=== PATIENT | female | born 1960 | race Caucasian/White ===

== ENCOUNTER 2017-01-05 11:01 | Emergency (ER) | payer MEDICAID, MEDICARE ==
--- NOTE | 2017-01-05 11:29 | ER Document Report ---
ED Fall - General Mode of Arrival: Medic Information source: Patient, Friend TRAVEL OUTSIDE OF THE [place] IN LAST 30 DAYS: No - HPI Occurred: Just prior to arrival - Refer to HPI notes Context: Slipped, Fell from standing Location of injury/pain: Back, Buttocks, Head, Hip, Neck Prehospital interventions: C-collar <RAMSEY MORILLO - Last Filed: 01/05/17 11:54> <RADHA GUY - Last Filed: 01/05/17 13:05> - General Chief Complaint: Head Injury Stated Complaint: FALL/HEAD PAIN Time Seen by Provider: 01/05/17 11:22 Notes: Patient is a 56-year-old female presenting to the emergency department after a fall. [place] her feet slid out from underneath of her and she fell on her buttocks. Patient states after she hit her buttocks on the floor she then "slammed" her head onto the concrete tile and it "bounced" off the ground after the initial hit. Patient states she saw black for a few seconds and she bit her tongue. Patient complains of pain to her left hip and left buttocks, into her lower back, and to the back of her head. Patient states she feels some numbness down her legs. Patient has a history of seizures, GERD, and a previous slow bleed from her left temporal lobe. (RAMSEY MORILLO) - Related data Allergies/Adverse Reactions: amoxicillin Allergy (Verified 01/05/17 11:27) Sulfa (Sulfonamide Antibiotics) Allergy (Verified 01/05/17 11:27) Past Medical History - General Information source: Patient, Friend - Social History Smoking Status: Unknown if Ever Smoked Family History: None Patient has suicidal ideation: No Patient has homicidal ideation: No - Past Medical History Cardiac Medical History: Reports: Hx Hypertension Neurological Medical History: Reports: Hx Seizures, Other - slow bleed to the left temporal lobe from traumatic event, peripheral neuropathy GI Medical History: Reports: Hx Gastroesophageal Reflux Disease Past Surgical History: Reports: Other - vagal nerve stimulator <RAMSEY MORILLO - Last Filed: 01/05/17 11:54> Review of Systems - Review of Systems Constitutional: No symptoms reported EENT: See HPI Cardiovascular: No symptoms reported Respiratory: No symptoms reported Gastrointestinal: No symptoms reported Genitourinary: No symptoms reported Female Genitourinary: No symptoms reported Musculoskeletal: See HPI Skin: No symptoms reported Hematologic/Lymphatic: No symptoms reported Neurological/Psychological: No symptoms reported -: Yes All other systems reviewed and negative <RAMSEY MORILLO - Last Filed: 01/05/17 11:54> Physical Exam - Vital signs Interpretation: Normal - General General appearance: Alert, Other - patient in suspine with C-collar in place In distress: Mild - HEENT Head: Normocephalic Eyes: Normal Pupils: PERRL Mucous membranes: Moist Pharynx: Other - bite zhen to tongue, no active bleeding Neck: Other - C-collar in place - Respiratory Respiratory status: No respiratory distress Chest status: Nontender Breath sounds: Normal Chest palpation: Normal - Cardiovascular Rhythm: Regular Heart sounds: Normal auscultation Murmur: No - Abdominal Inspection: Normal Distension: No distension Bowel sounds: Normal Tenderness: Nontender Organomegaly: No organomegaly - Back Back: Tender - Lower lumbar sacral musculature tenderness to palpation - Extremities General upper extremity: Normal inspection, Normal ROM, Normal strength General lower extremity: Normal ROM, Normal strength Hip: Tender - Tenderness to palpation over the left posterior hip, no pain to this area with manipulation or leg roll of the left leg - Neurological Neuro grossly intact: Yes Cognition: Normal Orientation: AAOx4 [place] Coma Scale Eye Opening: Spontaneous [place] Coma Scale Verbal: Oriented [place] Coma Scale Motor: Obeys Commands [place] Coma Scale Total: 15 Speech: Other - Speech is slow and deliberate consistent with patient's neurological history - Psychological Associated symptoms: Normal affect, Normal mood - Skin Skin Temperature: Warm Skin Moisture: Dry <RAMSEY MORILLO - Last Filed: 01/05/17 11:54> - HEENT Head: Tenderness - Tenderness to the occipital area. There is no hematoma palpated, there is no laceration seen. Neck: Other - C-collar in place. Allergies removed after the CT scan is read. There is some posterior cervical tenderness but it is minimal. <RADHA GUY - Last Filed: 01/05/17 13:05> - Vital signs Vitals: Resp 13 01/05/17 11:17 Course - Diagnostic Test Radiology reviewed: Image reviewed, Reports reviewed - CT scans of the head and cervical spine do not show any acute processes. X-rays of the left hip and lumbar spine do not show any acute processes. <RADHA GUY - Last Filed: 01/05/17 13:05> - Vital Signs Vital signs: Temp Pulse Resp BP Pulse Ox 98.2 F 68 15 130/88 H 100 01/05/17 11:33 01/05/17 11:33 01/05/17 12:12 01/05/17 12:12 01/05/17 12:12 Discharge <GINADOLLYRAMSEY - Last Filed: 01/05/17 11:54> <RADHA GUY - Last Filed: 01/05/17 13:05> - Discharge Clinical Impression: Contusion of occipital region of scalp Qualifiers: Encounter type: initial encounter Qualified Code(s): S00.03XA - Contusion of scalp, initial encounter Cervical strain Qualifiers: Encounter type: initial encounter Qualified Code(s): S16.1XXA - Strain of muscle, fascia and tendon at neck level, initial encounter Lumbar contusion Qualifiers: Encounter type: initial encounter Qualified Code(s): S30.0XXA - Contusion of lower back and pelvis, initial encounter Condition: Stable Disposition: HOME, SELF-CARE Additional Instructions: Contusions: Your injuries have resulted in contusions -- a crushing of the deep tissues. No injury to important structures was detected during the physician's exam. Contusions vary in the amount of pain they cause, and in the length of time required for healing. Typically, the area will become bruised, and will remain painful to touch for two or three weeks. However, most patients are back to working and playing within a few days. After the initial period of rest and cold-packs, your symptoms (together with the doctor's recommendations) will determine how rapidly you can get back to full activity. Usually this means "do what feels okay, but don't do things that hurt." If re-examination was recommended, it's important to follow up as instructed. Call the doctor or return any time if pain increases, if swelling becomes severe, if you develop numbness or weakness in an injured extremity, or if any other alarming symptoms occur. USE ICE-PACKS TOP THE PAINFUL AREAS TODAY. REST. TAKE TYLENOL AND ALEVE OR IBUPROFEN FOR PAIN IF NEEDED. RETURN TO THE EMERGENCY ROOM IF ANY NEW OR WORSENING SYMPTOMS. Scribe Attestation: 01/05/17 13:05 I personally performed the services described in the documentation, reviewed and edited the documentation which was dictated to the scribe in my presence, and it accurately records my words and actions. (RADHA GUY) Scribe Documentation - Scribe Written by Scribjoselito:: Magaly Vidal 01/05/17 11:35 acting as scribe for :: Dalia <RAMSEY MORILLO - Last Filed: 01/05/17 11:54>
--- NOTE | 2017-01-05 12:28 | RADIOLOGY REPORT (SQ) ---
EXAM DESCRIPTION: L SPINE WHOLE COMPLETED DATE/TIME: 01/05/2017 12:04 pm REASON FOR STUDY: fell back on concrete steps, hit head and low back COMPARISON: None. NUMBER OF VIEWS: Five views including obliques. TECHNIQUE: AP, lateral, oblique, and sacral radiographic images acquired of the lumbar spine. LIMITATIONS: None. FINDINGS: MINERALIZATION: Normal. SEGMENTATION: Normal. No transitional anatomy. ALIGNMENT: Minimal scoliosis. VERTEBRAE: Maintained height. No fracture or worrisome bone lesion. DISCS: There is narrowing of the L1-2 disc space and mild narrowing at L4-5. Marginal osteophytes ar e present at several levels. These are small. POSTERIOR ELEMENTS: Pedicles and facets are intact. No pars defect or posterior arch defects. HARDWARE: None in the spine. PARASPINAL SOFT TISSUES: Normal. PELVIS: Intact as visualized. No fractures or worrisome bone lesions. SI joints intact. OTHER: No other significant finding. IMPRESSION: Minimal scoliosis with mild degenerative disc changes and spondylosis. TECHNICAL DOCUMENTATION: JOB ID: [id number] [employer]- All Rights Reserved
--- NOTE | 2017-01-05 12:29 | RADIOLOGY REPORT (SQ) ---
EXAM DESCRIPTION: HIP LEFT AP/LATERAL COMPLETED DATE/TIME: 01/05/2017 12:04 pm REASON FOR STUDY: fall, pain COMPARISON: None. NUMBER OF VIEWS: Two views. TECHNIQUE: AP pelvis and additional frog-leg view of the left hip. LIMITATIONS: None. FINDINGS: MINERALIZATION: Normal. LEFT HIP: No fracture or dislocation. No worrisome bone lesions. RIGHT HIP: No fracture or dislocation. No worrisome bone lesions. PUBIS AND ISCHIUM: No fracture. PELVIS: No fracture. SACRUM: No fracture or dislocation. No worrisome bone lesions. LOWER LUMBAR SPINE: No fracture or dislocation. No worrisome bone lesions. No significant disc disea se. SOFT TISSUES: A catheter is projected over the lower abdomen/ upper pelvis possibly suggestive of a v entriculoperitoneal shunt. OTHER: No other significant finding. IMPRESSION: NEGATIVE STUDY OF THE LEFT HIP AND PELVIS. NO RADIOGRAPHIC EVIDENCE OF ACUTE INJURY. TECHNICAL DOCUMENTATION: JOB ID: [id number] [employer]- All Rights Reserved
--- NOTE | 2017-01-05 12:33 | RADIOLOGY REPORT (SQ) ---
EXAM DESCRIPTION: CT HEAD WITHOUT COMPLETED DATE/TIME: 01/05/2017 12:10 pm REASON FOR STUDY: fell back on concrete steps, hit head and low back COMPARISON: None. TECHNIQUE: Axial images acquired through the brain without intravenous contrast. Images reviewed wi th bone, brain and subdural windows. Images stored on PACS. All CT scanners at this facility use dose modulation, iterative reconstruction, and/or weight based d osing when appropriate to reduce radiation dose to as low as reasonably achievable (ALARA). [facility]: Dose Right [facility]: CareDose [facility]: Dose Right [facility]: Teradose 4D [facility]: [facility] RADIATION DOSE: 64.61 mGy. LIMITATIONS: None. FINDINGS: VENTRICLES: Normal size and contour. CEREBRUM: Mild cortical atrophy. There is an area of encephalomalacia in the left temporal fossa. N o masses. No hemorrhage. No midline shift. Normal hernandez/white matter differentiation. No evidence for acute infarction. CEREBELLUM: No masses. No hemorrhage. No alteration of density. No evidence for acute infarction. EXTRAAXIAL SPACES: No fluid collections. No masses. ORBITS AND GLOBE: No intra- or extraconal masses. Normal contour of globe without masses. CALVARIUM: No fracture. Craniotomy changes are present on the left in the temporal region. PARANASAL SINUSES: No fluid or mucosal thickening. SOFT TISSUES: No mass or hematoma. OTHER: There is a catheter in the left temporal fossa that extends down the neck. IMPRESSION: 1. Involutional changes of aging with an area of encephalomalacia in the left temporal fossa. A catheter is present the left temporal fossa extending down the neck. 2. There is no acute intracranial pathology. TECHNICAL DOCUMENTATION: JOB ID: [id number] Quality ID # [id number]: Final reports with documentation of one or more dose reduction techniques (e.g., Au tomated exposure control, adjustment of the mA and/or kV according to patient size, use of iterative reconstruction technique) 2010 [employer]- All Rights Reserved
--- NOTE | 2017-01-05 12:47 | RADIOLOGY REPORT (SQ) ---
EXAM DESCRIPTION: CT CERVICAL SPINE WITHOUT COMPLETED DATE/TIME: 01/05/2017 12:10 pm REASON FOR STUDY: fell back on concrete steps, hit head and low back COMPARISON: None. TECHNIQUE: Axial images acquired through the cervical spine without intravenous contrast. Images re viewed with lung, soft tissue and bone windows. Reconstructed coronal and sagittal MPR images review ed. Images stored on PACS. All CT scanners at this facility use dose modulation, iterative reconstruction, and/or weight based d osing when appropriate to reduce radiation dose to as low as reasonably achievable (ALARA). [facility]: Dose Right [facility]: CareDose [facility]: Dose Right [facility]: Teradose 4D [facility]: [employer] RADIATION DOSE: 20.62 mGy. LIMITATIONS: None. FINDINGS: ALIGNMENT: There is straightening of the cervical spine. MINERALIZATION: Normal. VERTEBRAL BODIES: No fractures or dislocation. DISCS: Disc spaces are narrowed at C4-5, and more prominently at C5-6 and C6-7. Anterior and posteri or osteophytes are present. FACETS, LATERAL MASSES, POSTERIOR ELEMENTS: No fractures. No dislocation. No acute findings. HARDWARE: None in the spine. VISUALIZED RIBS: No fractures. LUNG APICES AND SOFT TISSUES: No significant or acute findings. OTHER: No other significant finding. IMPRESSION: 1. Straightening of the cervical spine may indicate muscle spasm or may be positional. 2. Degenerative disc changes and spondylosis. There is left foraminal stenosis at C6-7. TECHNICAL DOCUMENTATION: JOB ID: [id number] Quality ID # [id number]: Final reports with documentation of one or more dose reduction techniques (e.g., Au tomated exposure control, adjustment of the mA and/or kV according to patient size, use of iterative reconstruction technique) 2010 [employer]- All Rights Reserved
[2017-01-05 13:47] VITALS: BP 139/94
== END 2017-01-05 13:52 | disposition home or self-care (01) ==
LOC: ER 11:01
DX: S00.03XA Contusion of scalp, initial encounter (principal); S16.1XXA Strain of muscle, fascia and tendon at neck level, initial encounter; S30.0XXA Contusion of lower back and pelvis, initial encounter; W01.0XXA Fall on same level from slipping, tripping and stumbling without subsequent striking against object, initial encounter; Y92.009 Unspecified place in unspecified non-institutional (private) residence as the place of occurrence of the external cause; I10 Essential (primary) hypertension; K21.9 Gastro-esophageal reflux disease without esophagitis; Z88.2 Allergy status to sulfonamides; Z88.0 Allergy status to penicillin
CPT/HCPCS: 70450; 72110; 72125; 99284